=== PATIENT | male | born 1960 | race Caucasian/White ===

== ENCOUNTER → 2017-02-17 | Outpatient (CLI) | payer BC ==
[~2017-02-17] MED LIST: TERA2CAP3 PO; VALS1TAB8 PO; VALS40TA2 PO
--- NOTE | 2017-02-17 13:39 | CARD ---
APPROVED REPORT EXAM: Two-dimensional and M-mode echocardiogram with Doppler and color Doppler. Other Information Quality : Technically Limited Rhythm : NSR with PVC'sTechnically limited study due to body habitus. INDICATION Peripheral Edema 2D DIMENSIONS RVDd3.2 (2.9-3.5cm)Left Atrium(2D)4.0 (1.6-4.0cm) IVSd1.2 (0.7-1.1cm)Aortic Root(2D)3.4 (2.0-3.7cm) LVDd5.5 (3.9-5.9cm)LVOT Diameter2.2 (1.8-2.4cm) PWd1.2 (0.7-1.1cm)LVDs4.0 (2.5-4.0cm) FS (%) 27.0 %SV77.8 ml LVEF(%)52.0 (>50%) Aortic Valve AoV Peak Cheng.155.2cm/sAoV VTI34.1cm AO Peak GR.9.6mmHgLVOT Peak Cheng.100.2cm/s LVOT VTI 20.90cmAO Mean GR.6mmHg NATE (VMAX)2.97zh0KHQ (VTI)2.35cm2 Mitral Valve MV E Ewfilqzg08.9cm/sMV DECEL MOMS388by MV A Hfoupopp34.8cm/sMV EVX48zk E/A Ratio1.3MV A Nriwbhix159rg MVA (PHT)3.21cm2 Tricuspid Valve TR P. Soatddms656oh/sRAP [id number] TR Peak Gr.46bsNaFBNO32diPk LEFT VENTRICLE The left ventricle is normal size. There is borderline concentric left ventricular hypertrophy. Left ventricle systolic function is normal. The Ejection Fraction is 50-55%. Wall motion not well visualiz ed due to poor image quality. There is no ventricular septal defect visualized. RIGHT VENTRICLE The right ventricle is normal size. The right ventricular systolic function is normal. ATRIA The left atrium size is normal. The interatrial septum is intact with no evidence for an atrial septa l defect or patent foramen ovale as noted on 2-D or Doppler imaging. AORTIC VALVE The aortic valve is normal in structure and function. The aortic valve is trileaflet. The aortic valv e is mildly calcified. Doppler and Color Flow revealed no significant aortic regurgitation. There is no significant aortic valvular stenosis. MITRAL VALVE Mitral annular calcification is mild to moderate. There is no mitral valve stenosis. Doppler and [place] r Flow revealed mild mitral regurgitation. TRICUSPID VALVE The tricuspid valve is not well visualized. Doppler and Color Flow revealed trace to mild tricuspid r egurgitation. The PA pressure was estimated at 34 mmHg. There is no tricuspid valve stenosis. PULMONIC VALVE The pulmonic valve is not well visualized. Doppler and Color Flow revealed no pulmonic valvular regur gitation. There is no pulmonic valvular stenosis. GREAT VESSELS The aortic root is normal in size. Pulmonary veins not recorded. The IVC is normal in size and collap ses >50% with inspiration. PERICARDIAL EFFUSION There is no evidence of significant pericardial effusion. Critical Notification Critical Value: No <Conclusion> Left ventricle systolic function is normal. The Ejection Fraction is 50-55%. Doppler and Color Flow revealed trace to mild tricuspid regurgitation. The PA pressure was estimated at 34 mmHg. Technically difficult study.
--- NOTE | 2017-02-17 13:44 | RAD ---
APPROVED REPORT Patient Location : OUT-PATIENT Indications Lower Extremity Edema : Bilateral The Right GSV measuers 5.4 mm and does not show any evidence of reflux. The left GSV measures 6 mm and does not show any evidence of reflux. The bilateral lesser saphenous veins do not demonstrate reflux. No thrombus in the visualized portions of the GSV, LSV and SFJ's. Critical Notification Critical Value: No <Conclusion> Negative for reflux.
--- NOTE | 2017-02-17 14:48 | RAD ---
APPROVED REPORT Patient Location: OUT-PATIENT Indications [place]ano scale images of the right common femoral, superficial femoral, deep femoral and popliteal vessel s revealed minimal atherosclerotic plaque. Spectral waveforms are notable for triphasic waveforms and color Doppler does not reveal any significant turbulence. Velocities are grossly normal at 131.9 cm/ s at the common femoral artery without any significant acceleration or deceleration throughout the ar terial course extending to the below-knee vessels. There is diminished flow in the right dorsalis ped is artery with likely 50-60% plaque noted in the proximal segment. Otherwise no high-grade flow-limit ing stenosis is identified on the right side. Similarly on the left side there is minimal atherosclerotic plaque from the left common femoral arter y to the popliteal segment. There is three-vessel runoff below the knee on the left side. The below-k nee vessels have biphasic and triphasic waveforms but no significant velocity acceleration or deceler ation is noted. Critical Notification Critical Value: No <Conclusion> 1. No flow-limiting stenosis in the bilateral lower extremity arterial system.
== END | disposition home or self-care (01) ==
LOC: US 07:48
PROVIDERS: ATTEND Internal Medicine Cardiovascular Disease
DX: M79.604 Pain in right leg (principal); M79.605 Pain in left leg; I34.0 Nonrheumatic mitral (valve) insufficiency; R60.0 Localized edema
CPT/HCPCS: 93306; 93925; 93970

== ENCOUNTER → 2017-04-10 | Outpatient (CLI) | payer BC ==
[2017-04-10 10:38] LABS: CREATININE 1.2 mg/dL (0.7-1.3); GFR 62.9; POTASSIUM 3.6 mmol/L (3.5-5.1)
== END | disposition home or self-care (01) ==
LOC: LAB 09:40
PROVIDERS: ATTEND Internal Medicine Cardiovascular Disease
DX: R60.0 Localized edema (principal)
CPT/HCPCS: 36415; 80048